=== PATIENT | male | born 1945 | race Caucasian/White ===

== ENCOUNTER 2017-07-05 05:38 | Outpatient (CLI) | payer MEDICARE, OTHER ==
[~2017-07-05] VITALS: Ht 172.7 cm; Wt 127.0 kg
[2017-07-05] MEDS ORDERED: ATOR10TA66 PO (16:11)
[2017-07-05] MEDS ORDERED: TAMS0.4C2 PO (16:11)
[2017-07-05] MEDS ORDERED: FINA5TAB6 PO (16:11)
[2017-07-05] MEDS ORDERED: METO-333 PO (16:11)
[2017-07-05] MEDS ORDERED: LISI40TA PO (16:11)
[2017-07-05] MEDS ORDERED: HYDR25TA4 PO (16:11)
== END 2017-07-05 16:13 ==
LOC: PREOP 05:38
PROVIDERS: ATTEND Surgery
DX: Z01.818 Encounter for other preprocedural examination (principal)

== ENCOUNTER 2017-07-12 06:58 | Day surgery (SDC) | payer MEDICARE, OTHER ==
[~2017-07-12] VITALS: Ht 172.7 cm; Wt 127.0 kg
[~2017-07-12 06:58] MED LIST: ATOR10TA66 PO; FINA5TAB6 PO; HYDR25TA4 PO; LISI40TA PO; METO-333 PO; TAMS0.4C2 PO
[2017-07-12] MEDS ORDERED: NS IV 500 ML 500 ML IV PRN (07:07)
[2017-07-12 07:10] VITALS: BP 127/66
[2017-07-12] MEDS ORDERED: NS IV 500 ML 500 ML ONE (07:13)
[2017-07-12] MEDS ORDERED: MIDAZOLAM 2 MG/2 ML (VERSED) VIAL ONE ×3 (08:51)
[2017-07-12] MEDS ORDERED: fentaNYL INJECTION 100 MCG/2 ML AMP ONE (08:51)
[2017-07-12] MEDS: fentaNYL INJECTION 100 MCG/2 ML AMP IVP PRN ×2 (09:04→09:12)
[2017-07-12] MEDS: MIDAZOLAM 2 MG/2 ML (VERSED) VIAL IVP PRN ×2 (09:05→09:10)
--- NOTE | 2017-07-12 09:24 | History & Physicial ---
History of Present Illness History of Present Illness Reason for visit/HPI to undergo screening colonoscopy. No family history of polyps and colon cancer Date of Admission 07/12/17 Date Seen by Provider: July 12, 2017 Time Seen by Provider: 09:22 I consulted on this patient on 07/12/17 09:21 Attending Physician Enoch Beard MD Admitting Physician Ama Muñoz MD Consult Allergies and Home Medications Allergies Coded Allergies: No Known Drug Allergies (Unverified , 07/05/17) Home Medications Atorvastatin Calcium 10 Mg Tablet, 10 MG PO HS, (Reported) Finasteride 5 Mg Tablet, 5 MG PO DAILY, (Reported) Hydrochlorothiazide 25 Mg Tablet, 25 MG PO DAILY, (Reported) Lisinopril 40 Mg Tablet, 40 MG PO DAILY, (Reported) Metoprolol Tartrate 25 Mg Tablet, 25 MG PO BID, (Reported) Tamsulosin HCl 0.4 Mg Cap.er.24h, 0.8 MG PO HS, (Reported) take 2 (0.4mg) tabs Patient Home Medication List Home Medication List Reviewed: Yes Past Lerafgw-Nwhoap-Aqmjgy Hx Patient Social History Marrital Status: Employed/Student: employed Alcohol Use: Occasionally Uses Recreational Drug Use: No Smoking Status: Never a Smoker Recent Foreign Travel: No Contact w/other who traveled: No Recent Hopitalizations: No Recent Infectious Disease Expo: No Seasonal Allergies Seasonal Allergies: Yes Surgeries Yes Appendectomy Respiratory Currently Using CPAP: Yes Cardiovascular Yes Hypertension Genitourinary Yes Bladder Infection Musculoskeletal Yes Arthritis, Chronic Back Pain Endocrine History of Endocrine Disorders: No HEENT History of HEENT Disorders: No Cancer No Constitutional: no symptoms reported EENTM: no symptoms reported Respiratory: no symptoms reported Cardiovascular: no symptoms reported Gastrointestinal: no symptoms reported Genitourinary: no symptoms reported, see HPI Musculoskeletal: no symptoms reported Skin: no symptoms reported Psychiatric/Neurological: No Symptoms Reported Physical Exam Vital Signs Vital Signs - First Documented 07/12/17 07:10 Temp 98.1 Pulse 71 Resp 18 B/P (MAP) 127/66 (86) Pulse Ox 94 O2 Delivery Room Air Capillary Refill : General Appearance: No Apparent Distress HEENT: Normal ENT Inspection Neck: Normal Inspection Respiratory: Lungs Clear Gastrointestinal: Non Tender Rectal: Deferred Back: Normal Inspection Neurologic/Psychiatric: Alert, Oriented x3 Skin: Warm/Dry Assessment/Plan Assessment and Plan gentleman to undergo screening colonoscopy. Details of the procedure, iatrogenic perforation, post-polypectomy bleeding etc. reviewed thoroughly. Seems to be in agreement to proceed. Admission Diagnosis Admission Status: Other (Outpt Proc) ENOCH BEARD MD July 12, 2017 9:24 am
--- NOTE | 2017-07-12 09:24 | Conscious Sedation/ASA ---
Conscious Sedation Pre-Proced Time Reviewed: 08:55 ASA Class: 1 Airway Mallampati Classification: (cachil dehe appropriate class) I. II. III, IV Lungs Heart ASA score ASA 1: a normal healthy patient ASA 2: a patient with a mild systemic disease (mid diabetes, controlled hypertension, obesity ASA 3: a patient with a severe systemic disease that limits activity (angina , COPD, prior Myocardial infarction) ASA 4: a patient with an incapacitating disease that is a constant threat to life (CHF, renal failure) ASA 5: a moribund patient not expected to survive 24 hrs. (ruptured aneurysm) ASA 6: a declared brain patient whose organs are being harvested. For emergent operations, add the letter E after the classification Grade 2 Sedation Plan: Discussed options with patient/fam Note The patient is an appropriate candidate to undergo the planned procedure, sedation, and anesthesia. The patient immediately re-assessed prior to indication. ENOCH RODRIGUEZ MD July 12, 2017 9:24 am
--- NOTE | 2017-07-12 09:26 | Discharge Inst-Simple/Standard ---
Discharge Inst-Standard Discharge Medications New, Converted or Re-Newed RX: Other Patient Instructions/Follow Up Plan of Care/Instructions/FU: Repeat colonoscopy in 10 years Activity as Tolerated: Yes (Repeat colonoscopy in 10 years) Discharge Diet: No Restrictions ENOCH RODRIGUEZ MD July 12, 2017 9:26 am
--- NOTE | 2017-07-12 09:28 | Endo Procedure Record ---
Endo Procedure Report Date of Procedure Last Colonoscopy: Yes (7-8 years ago) July 12, 2017 Surgeon (s) ENOCH RODRIGUEZ MD Post Procedure/Op Diagnosis Very few sigmoid diverticula Procedure Performed Colonoscopy to cecum Description of Procedure Anesthesia Type: Conscious Sedation Specimen(s) collected/removed none Description of the Procedure Indication for the procedure: This gentleman came in for screening colonoscopy. He denied any family history of polyps and colon cancer. Informed consent was obtained after reviewing the procedure in detail. Description of the procedure: He was placed in left lateral decubitus position and his vital signs were monitored. Conscious sedation was achieved using Versed and fentanyl. Digital rectal examination was unremarkable. The colonoscope was then introduced in the rectum and advanced all the way up to the cecum The quality of bowel preparation was acceptable. The scope was then withdrawn slowly and the mucosa examined in a systematic fashion. Findings Very few sigmoid colectomy. He tolerated the procedure well and was taken back to the nursing area in a stable condition. Impression: Screening colonoscopy. No polyps. No family history. Recommend repeating in 10 years. Copy Copies To 1: STARLA FRANCIS MD, XAVIER M MD July 12, 2017 9:28 am
[2017-07-12 09:30] VITALS: BP 122/69
[2017-07-12 10:00] VITALS: BP 120/63
[2017-07-12 10:05] VITALS: BP 120/63
== END 2017-07-12 10:10 | disposition home or self-care (01) ==
LOC: ENDO 06:58
PROVIDERS: ATTEND Surgery
DX: Z12.11 Encounter for screening for malignant neoplasm of colon (principal); K57.30 Diverticulosis of large intestine without perforation or abscess without bleeding; I10 Essential (primary) hypertension; Z79.899 Other long term (current) drug therapy

== ENCOUNTER → 2018-03-07 | Outpatient (CLI) | payer MEDICARE, OTHER ==
--- NOTE | 2018-03-07 14:59 | Diagnostic Imaging Report ---
INDICATION: Left knee pain. FINDINGS: Three views of the left knee show narrowing of the medial tibiofemoral joint compartment which is reduced to about half the thickness of the lateral compartment. There are small osteophytes at the margins of the articular surface in the medial compartment. The patellofemoral joint is unremarkable. 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 Dictated by: Dictated on workstation # [id number]
== END ==
LOC: RAD 13:55
PROVIDERS: ATTEND Family Medicine
DX: M17.12 Unilateral primary osteoarthritis, left knee (principal)
CPT/HCPCS: 73562